=== PATIENT | female | born 1955 | race Caucasian/White ===

== ENCOUNTER → 2016-10-19 | Outpatient (CLI) | payer MEDICARE ==
[2016-10-19 09:15] LABS: CH 30.1; CHCM 33.4; HCT 44.1 % (34.0-46.0); HDW 2.65; HGB 14.4 gm/dL (11.4-16.0); MCH 29.4 pg (25.0-35.0); MCHC 32.5 g/dL (31.0-37.0); MCV 90.4 fL (80.0-100.0); Mean Platelet Volume 7.1; RBC 4.88 m/uL (3.80-5.40); RDW 12.4 % (11.5-15.5); WBC 2.4 k/uL (3.8-10.6)
[2016-10-19 10:10] LABS: ALT 39 U/L (9-52); AST 28 U/L (14-36)
== END | disposition home or self-care (01) ==
LOC: LABWHC1 08:32
PROVIDERS: ATTEND Psychiatry & Neurology Neurology
DX: G35 Multiple sclerosis (principal)
CPT/HCPCS: 36415; 84450; 84460; 85027

== ENCOUNTER → 2017-07-19 | Outpatient (CLI) | payer MEDICARE ==
[2017-07-19 09:55] LABS: Basophils % (A) 1 %; CHCM 33.3; Eosinophils # (A) 0.1 k/uL (0-0.7); Eosinophils % (A) 1 %; HCT 46.4 % (34.0-46.0); HDW 2.57; HGB 15.3 gm/dL (11.4-16.0); Luc # (Auto) 0.09; Luc % (Auto) 2; Lymphocytes # (A) 1.2 k/uL (1.0-4.8); Lymphocytes % (A) 19 %; MCH 30.9 pg (25.0-35.0); MCV 93.6 fL (80.0-100.0); Mean Platelet Volume 6.9; Monocytes # (A) 0.4 k/uL (0-1.0); Monocytes % (A) 6 %; Neutrophils # (A) 4.6 k/uL (1.3-7.7); Neutrophils % (A) 72 %; RBC 4.96 m/uL (3.80-5.40); RDW 13.1 % (11.5-15.5); WBC 6.5 k/uL (3.8-10.6); WBC (Perox) 6.31
[2017-07-19 10:36] LABS: ALT 42 U/L (9-52); AST 31 U/L (14-36)
[2017-07-27 15:53] LABS: Mis test requested (Blood) Stratify JCV
== END | disposition home or self-care (01) ==
LOC: LABWHC1 09:16
PROVIDERS: ATTEND Psychiatry & Neurology Neurology
DX: G35 Multiple sclerosis (principal)
CPT/HCPCS: 36415; 84450; 84460; 85025

== ENCOUNTER 2017-07-30 15:26 | Emergency (ER) | payer MEDICARE ==
--- NOTE | 2017-07-30 15:47 | ED ---
Upper Extremity HPI - General Stated Complaint: Fall/Right Shoulder Pain Time Seen by Provider: 07/30/17 15:28 Source: patient, EMS, RN notes reviewed Mode of arrival: EMS Limitations: no limitations - History of Present Illness Initial Comments: This a 62-year-old female presents emergency Department chief complaint of right shoulder pain. Patient states that she tripped and fell at home. Patient states she normally has unsteady gait because of MS. Patient states she complains of right shoulder pain which is severe. She states she has lungs range of motion. Denies head injury no LOC denies neck, back, hip or any other injury at this time. Patient states she has surgery 11 months ago on her right shoulder by Dr. Sloan. Patient states that she had rotator cuff surgery. - Related Data Home Medications Medication Instructions Recorded Confirmed Alendronate Sodium [Fosamax] 70 mg PO FR 08/14/16 08/18/16 Calcium Carbonate/Vitamin D3 1 each PO DAILY 08/14/16 08/18/16 [Calcium 600-Vit D3 200 Tablet] Cholecalciferol [Vitamin D3] 1,000 unit PO DAILY 08/14/16 08/18/16 Interferon Beta-1A/Albumin [Rebif 44 mcg SQ MOWEFR 08/14/16 08/18/16 44 Mcg/0.5 ml Syringe] Omeprazole 20 mg PO BID PRN 08/14/16 08/18/16 Previous Rx's Medication Instructions Recorded Sennosides-Docusate Sodium 2 tab PO DAILY #30 tablet 08/19/16 [Senokot-S] traMADol HCl [Ultram] 50 - 100 mg PO Q4-6H PRN #90 tab 08/19/16 Allergies Allergy/AdvReac Type Severity Reaction Status Date / Time Penicillins Allergy Rash/Hives Verified 08/18/16 20:16 Review of Systems ROS Statement: Those systems with pertinent positive or pertinent negative responses have been documented in the HPI. ROS Other: All systems not noted in ROS Statement are negative. Past Medical History Past Medical History: GERD/Reflux Additional Past Medical History / Comment(s): MULTIPLE SCLEROSIS-HAS PROBLEMS WITH BALANCE & GAIT, USES WALKER, HX OF FALLS., PAST ASTHMA (NO PROBLEM NOW), OSTEOPOROSIS. FELL 06/18/16 AND INJURED "RIGHT SHOULDER AND COLLAR BONE"., STATES TENDER AREA AT SACRUM BETWEEN BUTTOCKS. History of Any Multi-Drug Resistant Organisms: None Reported Past Surgical History: No Surgical Hx Reported Past Anesthesia/Blood Transfusion Reactions: Motion Sickness Additional Past Anesthesia/Blood Transfusion Reaction / Comment(s): PT HAS NEVER RECEIVED ANESTHESIA. Past Psychological History: Anxiety, Depression Additional Psychological History / Comment(s): PAST HX OF ANXIETY & DEPRESSION - STATES NO RX NOW. Smoking Status: Never smoker Past Alcohol Use History: None Reported Past Drug Use History: None Reported - Past Family History Mother Family Medical History: Cancer Father Family Medical History: Cancer General Exam General appearance: alert, in no apparent distress Head exam: Present: atraumatic, normocephalic, normal inspection Neck exam: Present: normal inspection, full ROM. Absent: tenderness, meningismus, lymphadenopathy Respiratory exam: Present: normal lung sounds bilaterally. Absent: respiratory distress, wheezes, rales, rhonchi, stridor Cardiovascular Exam: Present: regular rate, normal rhythm, normal heart sounds. Absent: systolic murmur, diastolic murmur, rubs, gallop, clicks Extremities exam: Present: other (Right shoulder is a mild deformity swelling, tenderness with palpation, neurovascular intact with good strength equal bilaterally) Back exam: Present: full ROM. Absent: tenderness Neurological exam: Present: alert, oriented X3, CN II-XII intact, reflexes normal. Absent: motor sensory deficit Skin exam: Present: warm, dry, intact, normal color. Absent: rash Medical Decision Making - Medical Decision Making 62-year-old female presented emergency from for a fall. Patient has a fracture of her right humerus. Patient was placed in sling and follow-up with her orthopedic doctor Dr. Sloan. Return parameters were discussed. Disposition Clinical Impression: Right humeral fracture, Fall Disposition: HOME SELF-CARE Condition: Stable Instructions: Arm Fracture in Adults (ED) Additional Instructions: Please return to the Emergency Department if symptoms worsen or any other concerns. Referrals: Coy Bowers MD [Primary Care Provider] - 1-2 days Bola Sloan DO [Doctor of Osteopathic Medicine] - 1-2 days Time of Disposition: 15:47
[2017-07-30 15:49] VITALS: BP 147/67; PULSE 101; RESP 16; TEMP 97.8
--- NOTE | 2017-07-30 15:55 | XR ---
EXAMINATION TYPE: XR shoulder RT-2 views DATE OF EXAM: 07/30/2017 CLINICAL HISTORY: Pain from a fall TECHNIQUE: Two views of the right shoulder are obtained. COMPARISON: None. FINDINGS: Comminuted proximal right humeral metaphyseal fracture is identified with foreshortening on the Y view, although suboptimal patient positioning is seen. Humeral head is high riding with no jaziel dence of dislocation. Extensive soft tissue swelling is noted of the right shoulder. Right lung is we ll aerated and no displaced right rib fractures are present in the visualized ribs. Acromioclavicular joint space widening may relate to low-grade injury or tear. Clavicular head is not significantly el evated are depressed. IMPRESSION: 1. Comminuted and foreshortened right proximal metaphyseal humeral fracture with no gross evidence of dislocation although exam is somewhat limited due to patient positioning/pain. 2. Acromioclavicular joint space widening suggesting low-grade injury/tear without significant elevat ion or depression of the distal clavicle.
== END 2017-07-30 16:13 | disposition home or self-care (01) ==
LOC: EC 15:26
DX: S42.301A Unspecified fracture of shaft of humerus, right arm, initial encounter for closed fracture (principal); G35 Multiple sclerosis; M81.0 Age-related osteoporosis without current pathological fracture; Z79.899 Other long term (current) drug therapy; Z88.0 Allergy status to penicillin; W01.0XXA Fall on same level from slipping, tripping and stumbling without subsequent striking against object, initial encounter; Y92.009 Unspecified place in unspecified non-institutional (private) residence as the place of occurrence of the external cause
CPT/HCPCS: 99283

== ENCOUNTER → 2018-01-17 | Outpatient (CLI) | payer MEDICARE ==
[2018-01-17 09:34] LABS: HCT 42.5 % (34.0-46.0); HGB 14.6 gm/dL (11.4-16.0); MCH 31.1 pg (25.0-35.0); MCHC 34.3 g/dL (31.0-37.0); MCV 90.8 fL (80.0-100.0); Mean Platelet Volume 7.6; Platelet Count 205 k/uL (150-450); RBC 4.68 m/uL (3.80-5.40); RDW 13.1 % (11.5-15.5); WBC 5.2 k/uL (3.8-10.6)
[2018-01-17 09:53] LABS: ALT 38 U/L (9-52); AST 31 U/L (14-36)
== END | disposition home or self-care (01) ==
LOC: LABWHC1 08:52
PROVIDERS: ATTEND Psychiatry & Neurology Neurology
DX: G35 Multiple sclerosis (principal)
CPT/HCPCS: 36415; 84450; 84460; 85027

== ENCOUNTER → 2018-08-16 | Outpatient (CLI) | payer MEDICARE | LOC: LABWHC1 09:28 | PROVIDERS: ATTEND Psychiatry & Neurology Neurology | DX: G35 Multiple sclerosis (principal) | CPT/HCPCS: 36415; 82565; 84520 ==

== ENCOUNTER → 2018-09-01 | Outpatient (CLI) | payer MEDICARE ==
--- NOTE | 2018-09-01 11:26 | US ---
EXAMINATION TYPE: US venous doppler duplex LE LT DATE OF EXAM: 09/01/2018 11:18 AM COMPARISON: NONE CLINICAL HISTORY: M79.669 pain in lower leg. Left knee pain SIDE PERFORMED: Left TECHNIQUE: The lower extremity deep venous system is examined utilizing real time linear array sonog dario with graded compression, doppler sonography and color-flow sonography. VESSELS IMAGED: External Iliac Vein (EIV) Common Femoral Vein Deep Femoral Vein Greater Saphenous Vein * Femoral Vein Popliteal Vein Small Saphenous Vein * Proximal Calf Veins (* superficial vessels) Left Leg: Appears negative for DVT IMPRESSION: No evidence for DVT at this time.
== END | disposition home or self-care (01) ==
LOC: RADUSWWP 10:54
PROVIDERS: ATTEND Nurse Practitioner Family
DX: M79.662 Pain in left lower leg (principal)

== ENCOUNTER → 2019-07-26 | Outpatient (CLI) | payer MEDICARE ==
--- NOTE | 2019-07-26 11:47 | US ---
EXAMINATION TYPE: US venous doppler duplex LE RT DATE OF EXAM: 07/26/2019 11:19 AM COMPARISON: NONE CLINICAL HISTORY: Right leg; R60.0 Edema of lower extremity. Patient fell x 6 days ago. Redness and swelling. No hx blood clots. SIDE PERFORMED: Right TECHNIQUE: The lower extremity deep venous system is examined utilizing real time linear array sonog dario with graded compression, doppler sonography and color-flow sonography. VESSELS IMAGED: External Iliac Vein (EIV) Common Femoral Vein Deep Femoral Vein Greater Saphenous Vein * Femoral Vein Popliteal Vein Small Saphenous Vein * Proximal Calf Veins (* superficial vessels) Grayscale, color doppler, spectral doppler imaging performed of the deep veins of the right lower ext remity. There is normal flow, compressibility, vascular waveforms. Right Leg: Negative for DVT IMPRESSION: No sonographic evidence of deep venous thrombosis within the right lower extremity.
== END | disposition home or self-care (01) ==
LOC: RADUSWWP 10:35
PROVIDERS: ATTEND Family Medicine
DX: R60.0 Localized edema (principal)

== ENCOUNTER 2021-01-06 23:57 | Emergency (ER) | payer MEDICARE ==
--- NOTE | 2021-01-07 00:38 | ED ---
Fall HPI - General Chief Complaint: Fall Stated Complaint: Fall Time Seen by Provider: 01/07/21 00:06 Source: patient, EMS, RN notes reviewed, old records reviewed Mode of arrival: EMS - History of Present Illness Initial Comments: This is a 65-year-old female of mechanical fall. Mechanical fall 12 hours prior to arrival. Supple fall. Her head. Patient was encouraged to come to the ER for evaluation regarding head injury. Patient denies any other significant complaint. Patient was seen by staff and living roommates reduced noticed patient to have bleeding from her forehead. Patient denies any headache. No other complaints MD Complaint: fall -: hour(s) (12) Fall From: standing When Fall Occurred: 4-6 hours [employer] Fall Witnessed: no Place Fall Occurred: home, [facility] Loss of Consciousness: none Prolonged Down Time?: no Symptoms Prior to Fall: none Location: head, face Severity: mild Severity scale (1-10): 4 Context: tripped/slipped Associated Symptoms: denies - Related Data Home Medications Medication Instructions Recorded Confirmed Alendronate Sodium [Fosamax] 70 mg PO FR 08/14/16 07/30/17 Cholecalciferol [Vitamin D3] 1,000 unit PO DAILY 08/14/16 07/30/17 Omeprazole 20 mg PO BID PRN 08/14/16 07/30/17 Dimethyl Fumarate [Tecfidera] 120 mg PO BID 07/30/17 07/30/17 Previous Rx's Medication Instructions Recorded traMADol HCl [Ultram] 50 mg PO Q6H PRN #20 tab 07/30/17 Allergies Allergy/AdvReac Type Severity Reaction Status Date / Time codeine Allergy Rash/Hives Verified 01/07/21 00:07 Penicillins Allergy Rash/Hives Verified 01/07/21 00:07 Review of Systems ROS Statement: Those systems with pertinent positive or pertinent negative responses have been documented in the HPI. ROS Other: All systems not noted in ROS Statement are negative. Past Medical History Past Medical History: GERD/Reflux Additional Past Medical History / Comment(s): MULTIPLE SCLEROSIS-HAS PROBLEMS WITH BALANCE & GAIT, USES WALKER, HX OF FALLS., PAST ASTHMA (NO PROBLEM NOW), OSTEOPOROSIS. FELL 06/18/16 AND INJURED "RIGHT SHOULDER AND COLLAR BONE"., STATES TENDER AREA AT SACRUM BETWEEN BUTTOCKS. History of Any Multi-Drug Resistant Organisms: None Reported Past Surgical History: No Surgical Hx Reported Past Anesthesia/Blood Transfusion Reactions: Motion Sickness Additional Past Anesthesia/Blood Transfusion Reaction / Comment(s): PT HAS NEVER RECEIVED ANESTHESIA. Past Psychological History: Anxiety, Depression Smoking Status: Never smoker Past Alcohol Use History: None Reported Past Drug Use History: None Reported - Past Family History Mother Family Medical History: Cancer Father Family Medical History: Cancer General Exam Limitations: no limitations General appearance: alert, in no apparent distress Head exam: Present: normocephalic, normal inspection. Absent: atraumatic (3 cm frontal scalp laceration) Eye exam: Present: normal appearance, PERRL, EOMI. Absent: scleral icterus, conjunctival injection, periorbital swelling ENT exam: Present: normal exam, mucous membranes moist Neck exam: Present: normal inspection. Absent: tenderness, meningismus, lymphadenopathy Respiratory exam: Present: normal lung sounds bilaterally. Absent: respiratory distress, wheezes, rales, rhonchi, stridor Cardiovascular Exam: Present: regular rate, normal rhythm, normal heart sounds. Absent: systolic murmur, diastolic murmur, rubs, gallop, clicks GI/Abdominal exam: Present: soft, normal bowel sounds. Absent: distended, tenderness, guarding, rebound, rigid Extremities exam: Present: normal inspection, full ROM, normal capillary refill. Absent: tenderness, pedal edema, joint swelling, calf tenderness Back exam: Present: normal inspection Neurological exam: Present: alert, oriented X3, CN II-XII intact Psychiatric exam: Present: normal affect, normal mood Skin exam: Present: warm, dry, intact, normal color. Absent: rash Course Vital Signs 01/07/21 01/07/21 01/07/21 00:00 01:30 02:47 Temperature 98.2 F Pulse Rate 113 H 94 Respiratory 18 16 Rate Blood Pressure 94/67 133/91 O2 Sat by Pulse 98 97 Oximetry - Reevaluation(s) Reevaluation #1: Medical record is reviewed Symptoms improved here in the ER Patient informed of results and questions answered Procedures - Laceration Laceration #1 Consent Obtained: verbal consent Indication: laceration Site: scalp, upper extremity (6) Size (cm): 3 Description: linear Depth: simple, single layer Pre-repair: wound explored Type of Sutures: other (Selvin) Size of Sutures: other (Selvin) Technique: simple, interrupted Complications: pain Patient Tolerated Procedure: well Medical Decision Making - Medical Decision Making 65 female fall yesterday. Patient lacerations repaired here in the ER and cleaned. CT otherwise negative and patient can be discharged home - Radiology Data Radiology results: report reviewed (CT brain C-spine negative for acute disease), image reviewed Disposition Clinical Impression: Fall, Head injury, Laceration of head Disposition: HOME SELF-CARE Condition: Good Instructions (If sedation given, give patient instructions): Laceration (ED), Fall Prevention for Older Adults (ED), Head Injury (ED) Is patient prescribed a controlled substance at d/c from ED?: No Referrals: None,Stated [Primary Care Provider] - 1-2 days
--- NOTE | 2021-01-07 01:14 | CT ---
EXAM: CT Head and Maxillofacial Without Intravenous Contrast CLINICAL HISTORY: ITS.REASON CT Reason: fall TECHNIQUE: Axial computed tomography images of the head/brain and face without intravenous contrast. CTDI is 0.17 mGy and DLP is 7 mGy-cm. This CT exam was performed using one or more of the following dose reduction techniques: automated exposure control, adjustment of the mA and/or kV according to patient size, and/or use of iterative reconstruction technique. COMPARISON: No relevant prior studies available. FINDINGS: Bones/joints: No acute fracture. Soft tissues: Possible small subcutaneous contusion over the left maxilla. Sinuses: Unremarkable as visualized. No acute sinusitis. Mastoid air cells: Unremarkable as visualized. No mastoid effusion. Orbits: Unremarkable as visualized. IMPRESSION: Possible small subcutaneous contusion over the left maxilla. No facial or orbital fracture is identified.
--- NOTE | 2021-01-07 01:18 | CT ---
EXAM: CT Head Without Intravenous Contrast CLINICAL HISTORY: ITS.REASON CT Reason: fall TECHNIQUE: Axial computed tomography images of the head/brain without intravenous contrast. CTDI is 25.8 mGy and DLP is 803.2 mGy-cm. This CT exam was performed using one or more of the following dose reduction techniques: automated exposure control, adjustment of the mA and/or kV according to patient size, and/or use of iterative reconstruction technique. COMPARISON: No relevant prior studies available. FINDINGS: Brain: Mild periventricular white matter low density consistent with chronic small vessel disease. There is no evidence of acute large vessel infarct or intracranial hemorrhage. Ventricles: Unremarkable. No ventriculomegaly. Bones/joints: See below. Soft tissues: There is a left frontal scalp laceration and hematoma. No skull fracture is seen. Sinuses: Unremarkable as visualized. No acute sinusitis. Mastoid air cells: Unremarkable as visualized. No mastoid effusion. IMPRESSION: 1. There is a left frontal scalp laceration and hematoma. No skull fracture is seen. 2. Mild periventricular white matter low density consistent with chronic small vessel disease. There is no evidence of acute large vessel infarct or intracranial hemorrhage. EXAM: CT Cervical Spine Without Intravenous Contrast CLINICAL HISTORY: ITS.REASON CT Reason: fall TECHNIQUE: Axial computed tomography images of the cervical spine without intravenous contrast. CTDI is 10 mGy and DLP is 301.7 mGy-cm. This CT exam was performed using one or more of the following dose reduction techniques: automated exposure control, adjustment of the mA and/or kV according to patient size, and/or use of iterative reconstruction technique. COMPARISON: No relevant prior studies available. FINDINGS: Vertebrae: The spinal alignment is normal. No acute fracture. Interspaces: See below. Soft tissues: Unremarkable. DISCS/SPINAL CANAL/NEURAL FORAMINA: C2-C3: Unremarkable. No significant disc disease. No stenosis. C3-C4: Unremarkable. No significant disc disease. No stenosis. C4-C5: Moderate disc space narrowing and mild osteophytosis at C4-5 no spinal stenosis. C5-C6: Mild disc space narrowing and osteophytosis at C5-6 and C6-7 with no spinal stenosis. C6-C7: Unremarkable. No significant disc disease. No stenosis. C7-T1: Unremarkable. No significant disc disease. No stenosis. IMPRESSION: Mild to moderate degenerative changes in the mid to lower cervical spine. No acute fracture, subluxation, or canal compromise is identified.
[2021-01-07 02:30] VITALS: TEMP 98.2
[2021-01-07 02:50] VITALS: BP 133/91; PULSE 94; RESP 16
== END 2021-01-07 02:50 | disposition home or self-care (01) ==
LOC: EC 23:57
DX: S01.01XA Laceration without foreign body of scalp, initial encounter (principal); K21.9 Gastro-esophageal reflux disease without esophagitis; J45.909 Unspecified asthma, uncomplicated; M81.0 Age-related osteoporosis without current pathological fracture; F41.9 Anxiety disorder, unspecified; F32.9 Major depressive disorder, single episode, unspecified; W19.XXXA Unspecified fall, initial encounter
CPT/HCPCS: 70450; 70486; 72125; 99284

== ENCOUNTER 2021-08-13 14:27 | Emergency (ER) | payer MEDICARE ==
--- NOTE | 2021-08-13 15:48 | XR ---
EXAMINATION TYPE: XR ankle complete RT DATE OF EXAM: 08/13/2021 COMPARISON: NONE HISTORY: Pain TECHNIQUE: Frontal, lateral and oblique images of the right ankle are obtained. COMPARISON: None. FINDINGS: Cortical irregularity involving the medial malleolar tip suspicious for avulsion fracture. There is a linear ossific density in the lateral view anteriorly as well as cortical irregularity pos teriorly also on the lateral projection. Correlate for remote history of fracture. There is soft tis prakash swelling noted. There is also widening of the ankle mortise medially and narrowing laterally. The re is also widening of the medial tibiotalar joint space. IMPRESSION: 1. Correlate for avulsion fracture of the medial malleolar tip. 2. As noted there appear to be healed fractures of the distal fibula and distal tibia posteriorly. Co rrelate clinically with patient history. 3. Widening of the ankle mortise as well as the medial tibiotalar joint space.
[2021-08-13] MEDS ORDERED: SODIUM CHLORIDE 0.9% 1,000 ML IV STA (18:18)
[2021-08-13] MEDS ORDERED: KETOROLAC 30 MG/ML 1 ML VIAL IVP STA (18:19)
--- NOTE | 2021-08-13 18:27 | ED ---
General Adult HPI - General Chief complaint: Extremity Injury, Lower Stated complaint: R Ankle Pain Time Seen by Provider: 08/13/21 18:00 Source: patient, RN notes reviewed Mode of arrival: wheelchair Limitations: no limitations - History of Present Illness Initial comments: 66-year-old female presents to the emergency department. EMS for evaluation of right lower extremity pain. Patient states she was riding a stationary bike quite vigorously approximately 2 weeks ago and states she "over did it." Reports right ankle pain since then. Complains of difficulty getting her shoe on due to swelling. Denies any further injury; states she has not had it evaluated. However, family at the bedside expresses concerns that the patient has had multiple falls as reported by the independent living facility. Patient reports she has a history of MS and takes no medications. Denies fever, chills, weakness, chest pain, shortness of breath, abdominal pain, nausea, vomiting, diarrhea or dysuria. - Related Data Previous Rx's Medication Instructions Recorded Nitrofurantoin Monohyd/M-Cryst 100 mg PO Q12HR #14 cap 08/13/21 [Macrobid] Allergies Allergy/AdvReac Type Severity Reaction Status Date / Time codeine Allergy Rash/Hives Verified 08/13/21 19:13 Penicillins Allergy Rash/Hives Verified 08/13/21 19:13 Review of Systems ROS Statement: Those systems with pertinent positive or pertinent negative responses have been documented in the HPI. ROS Other: All systems not noted in ROS Statement are negative. Past Medical History Past Medical History: GERD/Reflux Additional Past Medical History / Comment(s): MULTIPLE SCLEROSIS-HAS PROBLEMS WITH BALANCE & GAIT, USES WALKER, HX OF FALLS., PAST ASTHMA (NO PROBLEM NOW), OSTEOPOROSIS. FELL 06/18/16 AND INJURED "RIGHT SHOULDER AND COLLAR BONE"., STATES TENDER AREA AT SACRUM BETWEEN BUTTOCKS. History of Any Multi-Drug Resistant Organisms: None Reported Past Surgical History: No Surgical Hx Reported Past Anesthesia/Blood Transfusion Reactions: Motion Sickness Additional Past Anesthesia/Blood Transfusion Reaction / Comment(s): PT HAS NEVER RECEIVED ANESTHESIA. Past Psychological History: Anxiety, Depression Smoking Status: Never smoker Past Alcohol Use History: None Reported Past Drug Use History: None Reported - Past Family History Mother Family Medical History: Cancer Father Family Medical History: Cancer General Exam Limitations: no limitations General appearance: alert, in no apparent distress, other (This is a well- developed, well nourished female who appears unkempt. Initial temperature 98.0, pulse 94, respirations 19, blood pressure 162/90, pulse ox 97% on room air.) Head exam: Present: atraumatic, normocephalic, normal inspection Eye exam: Present: normal appearance, PERRL, EOMI. Absent: scleral icterus, conjunctival injection, periorbital swelling ENT exam: Present: normal exam, normal oropharynx, mucous membranes moist Neck exam: Present: normal inspection. Absent: tenderness, meningismus, lymphad enopathy Respiratory exam: Present: normal lung sounds bilaterally. Absent: respiratory distress, wheezes, rales, rhonchi, stridor Cardiovascular Exam: Present: regular rate, normal rhythm, normal heart sounds. Absent: systolic murmur, diastolic murmur, rubs, gallop, clicks GI/Abdominal exam: Present: soft, normal bowel sounds. Absent: distended, tenderness, guarding, rebound, rigid Right Knee exam: Present: full ROM, swelling. Absent: tenderness, deformity Lower Leg exam: Present: swelling. Absent: deformity, Homans' sign Ankle exam: Present: normal inspection, full ROM (Patient moves ankle freely without discomfort). Absent: tenderness (No tenderness upon palpation of the right ankle, however patient does complain of discomfort with ambulation.) Foot/Toe exam: Present: tenderness, swelling. Absent: erythema Back exam: Present: normal inspection, full ROM. Absent: tenderness, CVA tenderness (R), CVA tenderness (L), muscle spasm, paraspinal tenderness, vertebral tenderness Neurological exam: Present: alert, oriented X3, CN II-XII intact Psychiatric exam: Present: normal affect, normal mood Skin exam: Present: warm, dry, intact, normal color. Absent: rash Course Vital Signs 08/13/21 08/13/21 15:23 23:09 Temperature 98.0 F 97.5 F L Pulse Rate 94 79 Respiratory 19 17 Rate Blood Pressure 162/90 130/89 O2 Sat by Pulse 97 97 Oximetry Medical Decision Making - Medical Decision Making 66-year-old female with a past medical history of MS presents to the emergency department accompanied by her daughter, for evaluation of right ankle pain and falls upon exam, patient does not appear to be well kempt; daughter reports the patient lives in an independent living facility. Patient states she spends most of her time seated, however reports a few weeks ago decided to use a stationary bike and thinks that she "overdid it." Patient complains of right lower extremity pain and is accompanied by mild edema. Doppler study was negative for DVT, but does show a popliteal cyst. X-ray of the right tibia and fibula show possible medial malleolus tip avulsion fracture, however patient denies pain with palpation of the area. No ankle edema noted, however patient does report d iscomfort with weightbearing activity patient's foot is mildly swollen. +2 pedal and posttibial pulses palpable. Preformed stirrup splint was applied to the right ankle and patient's daughter states she will call orthopedist for a follow-up appointment. In addition, patient does complain of frequent falls. Daughter states that this is not anything new for the patient and that she is treated by her primary care provider for this. Patient states she ambulates using a walker, but spends most of her time seated. Coccygeal pressure ulcer was noted. Discussed findings with patient and daughter. Advised to apply barrier cream daily and monitor closely for any signs of infection. Laboratory studies were obtained and reviewed. Patient has mild hypokalemia that will be supplemented with oral potassium. In addition, urinalysis did come back concerning for a urinary tract infection therefore patient will be started on oral antibiotic therapy and encouraged increase fluids. Patient will be discharged home to follow-up with her primary care provider in orthopedics on an outpatient basis. Return parameters were discussed with patient and family. They verbalize understanding and agree with this plan. This patient's care was discussed with my attending Dr. Dominguez. - Lab Data Result diagrams: 08/13/21 18:55 08/13/21 18:55 Lab Results 08/13/21 08/13/21 08/13/21 Range/Units 18:55 18:55 18:55 WBC 6.7 (3.8-10.6) k/uL RBC 4.83 (3.80-5.40) m/uL Hgb 13.7 (11.4-16.0) gm/dL Hct 42.3 (34.0-46.0) % MCV 87.5 (80.0-100.0) fL MCH 28.4 (25.0-35.0) pg MCHC 32.4 (31.0-37.0) g/dL RDW 13.0 (11.5-15.5) % Plt Count 352 (150-450) k/uL MPV 7.4 Neutrophils % 71 % Lymphocytes % 17 % Monocytes % 8 % Eosinophils % 2 % Basophils % 1 % Neutrophils # 4.8 (1.3-7.7) k/uL Lymphocytes # 1.1 (1.0-4.8) k/uL Monocytes # 0.5 (0-1.0) k/uL Eosinophils # 0.2 (0-0.7) k/uL Basophils # 0.0 (0-0.2) k/uL PT 9.7 (9.0-12.0) sec INR 0.9 (<1.2) APTT 24.8 (22.0-30.0) sec Sodium 138 (137-145) mmol/L Potassium 3.3 L (3.5-5.1) mmol/L Chloride 102 (98-107) mmol/L Carbon Dioxide 29 (22-30) mmol/L Anion Gap 7 mmol/L BUN 6 L (7-17) mg/dL Creatinine 0.32 L (0.52-1.04) mg/dL Est GFR (CKD-EPI)AfAm >90 (>60 ml/min/1.73 sqM) Est GFR (CKD-EPI)NonAf >90 (>60 ml/min/1.73 sqM) Glucose 138 H (74-99) mg/dL Calcium 9.3 (8.4-10.2) mg/dL Total Bilirubin 0.4 (0.2-1.3) mg/dL AST 29 (14-36) U/L ALT 24 (4-34) U/L Alkaline Phosphatase 217 H (38-126) U/L Troponin I (0.000-0.034) ng/mL Total Protein 6.8 (6.3-8.2) g/dL Albumin 3.9 (3.5-5.0) g/dL Urine Color Urine Appearance (Clear) Urine pH (5.0-8.0) Ur Specific [place] (1.001-1.035) Urine Protein (Negative) Urine Glucose (UA) (Negative) Urine Ketones (Negative) Urine Blood (Negative) Urine Nitrite (Negative) Urine Bilirubin (Negative) Urine Urobilinogen (<2.0) mg/dL Ur Leukocyte Esterase (Negative) Urine RBC (0-5) /hpf Urine WBC (0-5) /hpf Ur Squamous Epith Cells (0-4) /hpf Amorphous Sediment (None) /hpf Urine Bacteria (None) /hpf Urine Mucus (None) /hpf 08/13/21 08/13/21 Range/Units 18:55 21:00 WBC (3.8-10.6) k/uL RBC (3.80-5.40) m/uL Hgb (11.4-16.0) gm/dL Hct (34.0-46.0) % MCV (80.0-100.0) fL MCH (25.0-35.0) pg MCHC (31.0-37.0) g/dL RDW (11.5-15.5) % Plt Count (150-450) k/uL MPV Neutrophils % % Lymphocytes % % Monocytes % % Eosinophils % % Basophils % % Neutrophils # (1.3-7.7) k/uL Lymphocytes # (1.0-4.8) k/uL Monocytes # (0-1.0) k/uL Eosinophils # (0-0.7) k/uL Basophils # (0-0.2) k/uL PT (9.0-12.0) sec INR (<1.2) APTT (22.0-30.0) sec Sodium (137-145) mmol/L Potassium (3.5-5.1) mmol/L Chloride (98-107) mmol/L Carbon Dioxide (22-30) mmol/L Anion Gap mmol/L BUN (7-17) mg/dL Creatinine (0.52-1.04) mg/dL Est GFR (CKD-EPI)AfAm (>60 ml/min/1.73 sqM) Est GFR (CKD-EPI)NonAf (>60 ml/min/1.73 sqM) Glucose (74-99) mg/dL Calcium (8.4-10.2) mg/dL Total Bilirubin (0.2-1.3) mg/dL AST (14-36) U/L ALT (4-34) U/L Alkaline Phosphatase (38-126) U/L Troponin I <0.012 (0.000-0.034) ng/mL Total Protein (6.3-8.2) g/dL Albumin (3.5-5.0) g/dL Urine Color Dark Yellow Urine Appearance Turbid H (Clear) Urine pH 7.0 (5.0-8.0) Ur Specific [place] 1.018 (1.001-1.035) Urine Protein Trace H (Negative) Urine Glucose (UA) 2+ H (Negative) Urine Ketones 1+ H (Negative) Urine Blood Small H (Negative) Urine Nitrite Negative (Negative) Urine Bilirubin Negative (Negative) Urine Urobilinogen 4.0 (<2.0) mg/dL Ur Leukocyte Esterase Large H (Negative) Urine RBC 40 H (0-5) /hpf Urine WBC 24 H (0-5) /hpf Ur Squamous Epith Cells 1 (0-4) /hpf Amorphous Sediment Rare H (None) /hpf Urine Bacteria Many H (None) /hpf Urine Mucus Many H (None) /hpf - EKG Data EKG shows normal: sinus rhythm Rate: normal EKG Comments: EKG was obtained at 1902 and shows normal sinus rhythm. Ventricular rate 67, ME interval 114, QRS duration 98, QT/QTc 448/73. - Radiology Data Radiology results: report reviewed, image reviewed Xray of the right ankle was obtained. Report was reviewed in its entirety. Impression per Dr. Amaya is correlate for avulsion fracture of the medial malleolar tip. As noted, there appear to be healed fractures of the distal fibula and distal tibia posteriorly. Widening of the ankle mortise as well as the medial tibiotalar joint space. Venous doppler of the right lower extremity was obtained. Report was reviewed in its entirety. Impression per Dr. Bae is right lower extremity ultrasound negative for DVT. Suspect right popliteal cyst. Disposition Clinical Impression: Pressure ulcer of coccygeal region, Avulsion fracture of medial malleolus of right tibia, UTI (urinary tract infection), Hypokalemia, Bakers cyst Disposition: HOME SELF-CARE Condition: Stable Instructions (If sedation given, give patient instructions): Ankle Fracture (ED), Urinary Tract Infection in Women (ED), Hypokalemia (ED), Bakers Cyst (ED), Chronic Wounds (ED) Additional Instructions: Follow-up with your primary care provider for a recheck in the next 24-48 hours. Take antibiotic as directed for UTI. Applied barrier cream to sore on affected area. Follow up with orthopedist regarding ankle injury and Ken's cyst. Return to the emergency department with any new, worsening, or concerning symptoms. Prescriptions: Nitrofurantoin Monohyd/M-Cryst [Macrobid] 100 mg PO Q12HR #14 cap Is patient prescribed a controlled substance at d/c from ED?: No Referrals: Coy Bowers MD [Primary Care Provider] - 1-2 days Time of Disposition: 22:45
[2021-08-13 18:59] LABS: Basophils % (A) 1 %; Eosinophils # (A) 0.2 k/uL (0-0.7); Eosinophils % (A) 2 %; HCT 42.3 % (34.0-46.0); HGB 13.7 gm/dL (11.4-16.0); Lymphocytes # (A) 1.1 k/uL (1.0-4.8); Lymphocytes % (A) 17 %; MCH 28.4 pg (25.0-35.0); MCHC 32.4 g/dL (31.0-37.0); MCV 87.5 fL (80.0-100.0); Mean Platelet Volume 7.4; Monocytes # (A) 0.5 k/uL (0-1.0); Monocytes % (A) 8 %; Neutrophils # (A) 4.8 k/uL (1.3-7.7); Neutrophils % (A) 71 %; Platelet Count 352 k/uL (150-450); RBC 4.83 m/uL (3.80-5.40); WBC 6.7 k/uL (3.8-10.6)
[2021-08-13 19:08] LABS: ALT 24 U/L (4-34); AST 29 U/L (14-36); African American GFR (CKD) >90 (>60 ml/min/1.73 sqM); Albumin 3.9 g/dL (3.5-5.0); Alkaline Phosphatase 217 U/L (38-126); Anion Gap 7 mmol/L; Blood Urea Nitrogen 6 mg/dL (7-17); Calcium 9.3 mg/dL (8.4-10.2); Carbon Dioxide 29 mmol/L (22-30); Chloride 102 mmol/L (98-107); Glucose 138 mg/dL (74-99); Non-African American GFR(CKD) >90 (>60 ml/min/1.73 sqM); Potassium 3.3 mmol/L (3.5-5.1); Sodium 138 mmol/L (137-145); Total Bilirubin 0.4 mg/dL (0.2-1.3); Total Protein 6.8 g/dL (6.3-8.2)
[2021-08-13 19:13] LABS: INR 0.9 (<1.2); Partial Thromboplastin Time 24.8 sec (22.0-30.0); Prothrombin Time 9.7 sec (9.0-12.0)
--- NOTE | 2021-08-13 20:00 | US ---
EXAMINATION TYPE: US venous doppler duplex LE RT DATE OF EXAM: 08/13/2021 7:44 PM COMPARISON: US CLINICAL HISTORY: pain, RLE edema. Pain and swelling after patient injured her ankle working out. No hx of DVT. Patient does not take blood thinners. SIDE PERFORMED: Right TECHNIQUE: The lower extremity deep venous system is examined utilizing real time linear array sonog dario with graded compression, doppler sonography and color-flow sonography. VESSELS IMAGED: Common Femoral Vein Deep Femoral Vein Greater Saphenous Vein * Femoral Vein Popliteal Vein Small Saphenous Vein * Proximal Calf Veins (* superficial vessels) Right Leg: No evidence of DVT in veins imaged at this time. Complex area seen medial popliteal area near vessels: 4.5 x 3.0 x 1.1 cm. IMPRESSION: 1. Right lower extremity ultrasound negative for deep venous thrombosis. 2. Suspected right popliteal cyst
[2021-08-13 21:25] LABS: Amorphous Sediment,Urine Rare /hpf; Appearance,Urine Turbid (Clear); Bacteria,Urine Many /hpf; Bilirubin,Urine Negative (Negative); Blood,Urine Small (Negative); Color,Urine Dark Yellow; Glucose,Urine (UA) 2+ (Negative); Ketones,Urine 1+ (Negative); Leukocyte Esterase,Urine Large (Negative); Mucus,Urine Many /hpf; Nitrite,Urine Negative (Negative); Protein,Urine Trace (Negative); RBC,Urine 40 /hpf (0-5); Specific Gravity,Urine 1.018 (1.001-1.035); Squamous Epithelial Cell,Urine 1 /hpf (0-4); WBC,Urine 24 /hpf (0-5)
[2021-08-13] MEDS ORDERED: POTASSIUM CHLORIDE ER 20 MEQ TAB.ER PO STA (21:41)
[2021-08-13] MEDS ORDERED: NITROFURANTOIN MONOHYD/M-CRYST 100 MG CAP PO STA (22:44)
[2021-08-13 23:10] VITALS: BP 130/89; PULSE 79; RESP 17; TEMP 97.5
== END 2021-08-13 23:09 | disposition home or self-care (01) ==
LOC: EC 14:27
DX: S82.51XA Displaced fracture of medial malleolus of right tibia, initial encounter for closed fracture (principal); Z88.5 Allergy status to narcotic agent; Z88.0 Allergy status to penicillin; L89.159 Pressure ulcer of sacral region, unspecified stage; N39.0 Urinary tract infection, site not specified; E87.6 Hypokalemia; M71.20 Synovial cyst of popliteal space [Baker], unspecified knee; X58.XXXA Exposure to other specified factors, initial encounter; Y93.89 Activity, other specified
CPT/HCPCS: 36415; 93005; 80053; 84484; 85025; 85610; 85730; 81001; 87086; 87077; 87186; 73610; 93971; 96374; 99284; J1885